=== PATIENT | male | born 1950 | race Caucasian/White ===

== ENCOUNTER 2022-07-10 13:00 | Day surgery (SDC) | payer MEDICARE ==
[~2022-07-10] VITALS: Ht 175.3 cm; Wt 93.0 kg
[2022-07-10] MEDS ORDERED: CARDIZEM LA120 MG PO (13:15)
[2022-07-10] MEDS ORDERED: FLECAINIDE ACE100 MG PO (13:15)
[2022-07-10] MEDS ORDERED: ELIQUIS5 MG PO (13:15)
[2022-07-10] MEDS ORDERED: VIAGRA100 MG PO (13:16)
[2022-07-10] MEDS ORDERED: LOSARTAN POTASS50 MG PO (13:16)
[2022-07-10] MEDS ORDERED: CRESTOR10 MG PO (13:16)
[2022-07-10] MEDS ORDERED: FISH OIL 1,201200 MG PO (13:17)
[2022-07-10] MEDS ORDERED: MULTI VITAMIN1 EACH PO (13:17)
--- NOTE | 2022-07-10 14:22 | NUR ---
07/10/22 1422 Antionette Cavazos 1419-PATIENT ARRIVED TO PACU ON 2L NC RR EVEN. PATIENT AWAKE DENIES PAIN OR NAUSEA. HOB ELEVATED. ABDOMEN SOFT. IVF INFUSING. ENCOURAGED TO PASS GAS. PATIENT DOZES TO SLEEP
--- NOTE | 2022-07-10 19:03 | OR ---
[facility] [address] [place], [place] [address] Signed DATE OF OPERATION: 07/10/2022 SURGEON: Sheila Cota MD PREOPERATIVE DIAGNOSIS: Colon screening. POSTOPERATIVE DIAGNOSIS: Polyps x2 (right colon and sigmoid colon). PROCEDURE: Total colonoscopy to cecum with cold snare polypectomy x1 and cold morcellation polypectomy x1. ANESTHESIA: Intravenous sedation fentanyl 100 mcg and Versed 4 mg total. INDICATION: This 72-year-old white male is patient of Dr. Crabtree and last underwent colonoscopy in [facility] 10 years ago. He does have family history of polyps in his father. He has no symptoms of bleeding, diarrhea or constipation and no strict family history of colon cancer proper. He was admitted at this time to undergo colonoscopy for screening. He understands the risks of bleeding, infection, and perforation. FINDINGS: The prep was good. Complete colonoscopy was undertaken of the cecum. There was a sessile polyp of the proximal ascending colon which was excised with cold snare technique. Much of the polyp was lost unfortunately, though efforts were made to retrieve it entirely. Another small polyp was noted of the left colon. This was excised with cold morcellation technique. The remaining colon was otherwise normal. PROCEDURE IN DETAIL: The patient was brought to the endoscopy suite and placed in lateral decubitus position given intravenous sedation to the point of slurred speech and nystagmus. Digital rectal examination was normal. An Olympus video colonoscope was passed in the rectum and manipulated throughout the colon ultimately intubating the cecum itself. The ileocecal valve and appendiceal orifice were normal. Scope was withdrawn in the proximal ascending colon a small sessile polyp was noted. It was rather small. This was excised with cold snare Electronically Signed By: SHEILA COTA MD 07/10/22 1903 PATIENT NAME: ARIELA AGEE OPERATIVE REPORT DATE OF : 48 REPORT #: [id number] PHYSICIAN: SHEILA COTA MD PCP: MILTON CRABTREE MD REPORT IS CONFIDENTIAL AND NOT TO BE RELEASED WITHOUT AUTHORIZATION [facility] [address] [place], [place] [address] Signed technique. Attempts at withdrawal of the polyp tissue were still somewhat difficult and ultimately the amount actually delivered for pathology was rather small. The excision site showed complete excision of the polyp, photographs had been taken. The scope was then withdrawn. Examination throughout showed no sign of abnormality into the left colon in the sigmoid where a small polyp was noted, this was excised with cold morcellation technique. Retroflexed view of the rectum was normal. Scope was removed. The patient was taken to the recovery room in good condition. CONCLUDING DIAGNOSIS: Polyps x2. PLAN: Recommend repeat colonoscopy in 5 years, sooner if clinically indicated. He will return to the ongoing care of Dr. Crabtree. MD SAI Grigsby/PRASHANT /[id number] cc: Milton Crabtree MD Copies: MILTON CRABTREE MD ~ Electronically Signed By: SHEILA COTA MD 07/10/22 9713 PATIENT NAME: ARIELA AGEE OPERATIVE REPORT DATE OF : 48 REPORT #: [id number] PHYSICIAN: SHEILA COTA MD PCP: MILTON CRABTREE MD REPORT IS CONFIDENTIAL AND NOT TO BE RELEASED WITHOUT AUTHORIZATION
--- NOTE | 2022-07-11 16:19 | PATH ---
[facility] [address] [facility] [place], [place] [address] Signed SPECIMEN(S): A ASCENDING/RIGHT COLON SPECIMEN(S): B RECTOSIGMOID POLYP SPECIMEN SOURCE: A. ASCENDING/RIGHT COLON B. RECTOSIGMOID POLYP CLINICAL HISTORY: Family history of colon polyps FINAL PATHOLOGIC DIAGNOSIS: A. Ascending/right colon, polypectomy: - Fragments of hyperplasic polyp. B. Rectosigmoid polyp, polypectomy: - Hyperplastic polyp. DDF:mfr:C2NR MICROSCOPIC EXAMINATION: Histologic sections of all submitted blocks are examined by light microscopy. These findings, together with the gross examination, support the pathologic diagnosis. GROSS DESCRIPTION: Two specimens are received in two containers labeled with "RR". A. The specimen, labeled "RR, 1," and designated on the requisition "ascending/right colon," is received in formalin and consists of three fragments of pink-bar tissue (0.2 to 0.3 cm in greatest dimension). The specimen is submitted entirely in cassette A1. B. The specimen, labeled "RR, 2," and designated on the requisition "rectosigmoid polypectomy," is received in formalin and consists of one fragment of pink-bar tissue (0.3 cm in greatest dimension). The specimen is submitted entirely in cassette B1. AC (under the direct supervision of a pathologist) The Gross Description was prepared using a voice recognition system. The report was reviewed for accuracy; however, sound-alike word errors, addition and/or deletions may occur. If there is any question about this report, please contact Client Services. PERFORMING LABORATORY: The technical component was performed by [facility], [address] [place] [id number] (CLIA# [id number]). PATIENT NAME: ARIELA AGEE PATHOLOGY DATE OF : 48 REPORT #: [id number] PHYSICIAN: [facility] PCP: MILTON CRABTREE MD REPORT IS CONFIDENTIAL AND NOT TO BE RELEASED WITHOUT AUTHORIZATION [facility] [address] [place], [place] [address] Signed Professional interpretation was performed by [facility], [facility], [address] [place] [id number] (CLIA#: [id number]) Diagnostician: Jamey De La Cruz DO Pathologist Electronically Signed 07/11/2022 Copies: ~ PATIENT NAME: ARIELA AGEE PATHOLOGY DATE OF : 48 REPORT #: [id number] PHYSICIAN: [facility] PCP: MILTON CRABTREE MD REPORT IS CONFIDENTIAL AND NOT TO BE RELEASED WITHOUT AUTHORIZATION
== END 2022-07-10 14:55 | disposition home or self-care (01) ==
LOC: OPS 13:00 → DS 13:05 → OPS 14:00
PROVIDERS: ATTEND Surgery
PROC: 0DBN8ZZ Excision of Sigmoid Colon, Via Natural or Artificial Opening Endoscopic (ICD-10-PCS; 2022-07-10)
PROC: 0DBK8ZZ Excision of Ascending Colon, Via Natural or Artificial Opening Endoscopic (ICD-10-PCS; principal; 2022-07-10 13:00)
DX: Z12.11 Encounter for screening for malignant neoplasm of colon (principal); Z83.71 Family history of colonic polyps; Z79.01 Long term (current) use of anticoagulants; Z86.79 Personal history of other diseases of the circulatory system; I10 Essential (primary) hypertension; K63.5 Polyp of colon
CPT/HCPCS: 88305; 99153; G0500; J2250; J3010; J7121